=== PATIENT | male | born 1985 | race Hispanic/Latino ===

== ENCOUNTER 2018-06-14 06:38 | Emergency (ER) | payer OTHER ==
[2018-06-14 07:09] VITALS: BP 139/92
--- NOTE | 2018-06-14 07:13 | XRay Report ---
LEFT SHOULDER RADIOGRAPHS INDICATION: Left shoulder pain, status post 13.5 feet fall. COMPARISON: None similar at this institution. FINDINGS: Frontal and Y views of the left shoulder, 3 projections demonstrate normal humeral head contour, well positioned against the glenoid. Normal acromioclavicular joint. Preserved scapular contour. Normal visualized soft tissues, left ribs and lung. CONCLUSION: No acute left shoulder radiographic abnormality, as described. Thank you for the opportunity to participate in this patient's care.
[2018-06-14] MEDS ORDERED: IBUPROFEN PO ONE (07:30)
[2018-06-14] MEDS ORDERED: NORCO 7.5/325 PO ONE (07:37)
--- NOTE | 2018-06-14 08:09 | Ultrasound Report ---
ULTRASOUND SCROTAL INDICATION: Fall. COMPARISON: None similar. FINDINGS: Longitudinal and transverse grayscale and color flow sonographic evaluation of the scrotum and its contents demonstrates normal testicular contour and echotexture bilaterally without suspicious intrinsic lesions. Preserved bilateral blood flow. Right testicle estimated at 4.2 x 1.9 x 3.1 cm while the left testicle is 4.1 x 2 x 2.5 cm. Minimal right peritesticular fluid. Normal bilateral epididymi as well, estimated at 1.1 x 0.7 cm on the right and 1.2 x 0.7 cm on the left. CONCLUSION: No acute testicular sonographic abnormality, as described. Thank you for the opportunity to participate in this patient's care.
--- NOTE | 2018-06-14 08:40 | Emergency Department Report ---
ED Male HPI - General Chief complaint: Fall Stated complaint: GROIN/SHOULDER INJURY Time Seen by Provider: 06/14/18 07:36 Source: patient Mode of arrival: Ambulatory Limitations: No Limitations - History of Present Illness Initial comments: PT is a 32-year-old male who was attempting to get a baseball off the roof when he slipped. He had been standing on the banister of the porch. The banister was amenable. When he fell he had straddled hitting his right thigh and testicles. He then fell from the pole and landed on the ground on his left shou lder. He comes complaining of right thigh, testicular and left shoulder pain. Patient is ambulatory. There is no bleeding abrasions or open skin. -: Sudden Location: right testicle, left testicle Severity: moderate Quality: aching Consistency: constant Improves with: none Worsens with: movement denies other symptoms. denies: blood in urine - Related Data Sexually active: Yes Previous Rx's Medication Instructions Recorded Last Taken Type traMADol [Ultram] 50 mg PO Q6HR PRN #10 tablet 06/14/18 Unknown Rx Allergies Allergy/AdvReac Type Severity Reaction Status Date / Time No Known Allergies Allergy Unverified 06/14/18 06:51 ED Review of Systems ROS: Stated complaint: GROIN/SHOULDER INJURY Other details as noted in HPI Comment: All other systems reviewed and negative ED Past Medical Hx - Past Medical History Previous Medical History?: No - Surgical History Past Surgical History?: Yes Additional Surgical History: abd sx 2017 - Family History Family history: no significant - Social History Smoking Status: Never Smoker Substance Use Type: Alcohol - Medications Home Medications: Home Medications Medication Instructions Recorded Confirmed Last Taken Type traMADol [Ultram] 50 mg PO Q6HR PRN #10 tablet 06/14/18 Unknown Rx ED Physical Exam - General Limitations: No Limitations General appearance: alert, in no apparent distress - Head Head exam: Present: atraumatic, normocephalic - Eye Eye exam: Present: normal appearance, PERRL - ENT ENT exam: Present: mucous membranes moist - Neck Neck exam: Present: normal inspection - Respiratory Respiratory exam: Present: normal lung sounds bilaterally - Cardiovascular Cardiovascular Exam: Present: regular rate - GI/Abdominal GI/Abdominal exam: Present: soft, normal bowel sounds - Rectal Rectal exam: Present: deferred - exam: Present: testicular tenderness, scrotal swelling (MILD). Absent: urethral discharge - Extremities Exam Extremities exam: Present: normal inspection, full ROM - Expanded Upper Extremity Exam Left Shoulder Exam: Present: normal inspection, full ROM (LIMITED BY PAIN) Upper Arm exam: Present: normal inspection Elbow exam: Present: normal inspection Vascular: Present: normal capillary refill, radial pulse, brachial pulse, ulnar pulse - Expanded Lower Extremity Exam Right Upper Leg exam: Present: erythema (UPPER INNER RIGHT THIGH AREA) - Back Exam Back exam: Present: normal inspection, full ROM - Neurological Exam Neurological exam: Present: alert, oriented X3, CN II-XII intact - Psychiatric Psychiatric exam: Present: normal affect, normal mood - Skin Skin exam: Present: warm, dry, intact ED Course Vital Signs 06/14/18 06:43 Temperature 97.9 F Pulse Rate 92 H Respiratory 18 Rate Blood Pressure 139/92 O2 Sat by Pulse 100 Oximetry ED Medical Decision Making - Radiology Data Radiology results: report reviewed, image reviewed - Medical Decision Making US AND XRAY NOTED NORMAL UA PENDING ON DC Vital Signs 06/14/18 06:43 Temperature 97.9 F Pulse Rate 92 H Respiratory 18 Rate Blood Pressure 139/92 O2 Sat by Pulse 100 Oximetry MEDICATED FOR PAIN SLING TO ARM FULL ROM NO FRACTURE TESTICULAR SUPPORT DC HOME WITH DC PLAN OF CARE Critical care attestation.: If time is entered above; I have spent that time in minutes in the direct care of this critically ill patient, excluding procedure time. ED Disposition Clinical Impression: Fall, Contusion of testicle, Contusion, thigh, Shoulder sprain Disposition: DC-01 TO HOME OR SELFCARE Is pt being admited?: No Does the pt Need Aspirin: No Condition: Stable Instructions: Contusion in Adults (ED) Additional Instructions: ICE REST ELEVATE YOUR SCROTUM SLING TO L ARM FOR COMFORT DIET TOLERATED MEDS ORDERED TODAY IN ER FOLLOW INSTRUCTIONS ON THE BOTTLE FOLLOW UP PCP WITHIN 48 HOURS TO ENSURE YOU ARE GETTING BETTER REFERRAL BELOW FOR FOLLOW UP ACTIVITY TOLERATED MOTRIN OR TYLENOL FOR PAIN OR FEVER---MILD PAIN TRAMADOL FOR SEVERE PAIN RETURN TO THE ER FOR WORSENING SYMPTOMS NOT RELIEVED BY YOUR MEDICATIONS. Prescriptions: traMADol [Ultram] 50 mg PO Q6HR PRN #10 tablet PRN Reason: Pain Referrals: [facility] [Other] - 3-5 Days Time of Disposition: 08:55
[2018-06-14 09:10] LABS: Bilirubin,Urine NEG (Negative); Blood,Urine NEG (Negative); Color,Urine Straw (Yellow); Mucus,Urine FEW /HPF; Protein,Urine <15 mg/dL mg/dL (Negative); Urobilinogen,Urine < 2.0 mg/dL (<2.0)
[2018-06-14 09:15] LABS: RBC,Urine < 1.0 /HPF (0.0-6.0); WBC,Urine < 1.0 /HPF (0.0-6.0)
== END 2018-06-14 09:14 | disposition home or self-care (01) ==
LOC: ED 06:38
DX: S43.402A Unspecified sprain of left shoulder joint, initial encounter (principal); S70.11XA Contusion of right thigh, initial encounter; S30.22XA Contusion of scrotum and testes, initial encounter; W01.0XXA Fall on same level from slipping, tripping and stumbling without subsequent striking against object, initial encounter; Y93.89 Activity, other specified; Y92.89 Other specified places as the place of occurrence of the external cause; Y99.8 Other external cause status
CPT/HCPCS: 81001; 93975